=== PATIENT | female | born 1970 | race Caucasian/White ===

== ENCOUNTER 2016-04-09 12:54 | Emergency (ER) | payer BC ==
[2016-04-09 13:19] VITALS: BP 138/66
--- NOTE | 2016-04-09 13:55 | UC ---
UC General HPI - HPI Summary HPI Summary: patient has had elevated BP for the past few weeks. Sh is complaining of on and off facial flushing and increase in flatulence. - History of Current Complaint Chief Complaint: UCDizziness Stated Complaint: HIGH BLOOD PRESSURE, AND DIZZINESS Time Seen by Provider: 04/09/16 13:29 Hx Obtained From: Patient Onset/Duration: Sudden Onset, Lasting Weeks Timing: Constant Onset Severity: Mild Current Severity: Mild Pain Intensity: 0 - Allergy/Home Medications Allergies/Adverse Reactions: Allergies Allergy/AdvReac Type Severity Reaction Status Date / Time Sulfa Antibiotics Allergy Nausea And Verified 09/30/15 12:11 Vomiting PMH/Surg Hx/FS Hx/Imm Hx Previously Healthy: Yes Endocrine History Of: Reports: Diabetes - Borderline, Thyroid Disease - hashimotos Cardiovascular History Of: Denies: Cardiac Disorders, Hypertension Respiratory History Of: Reports: Asthma - mild - seasonal Denies: COPD GI/ History Of: Denies: Ulcer Cancer History Of: Denies: Breast Cancer - Surgical History Surgical History: Yes Surgery Procedure, Year, and Place: tonsillectomy at age 9. ivf - Family History Known Family History: Positive: Hypertension - Social History Alcohol Use: Rare Substance Use Type: None Smoking Status (MU): Never Smoked Tobacco Review of Systems Constitutional: Fatigue Skin: Other - facial flushing Eyes: Negative ENT: Negative Respiratory: Negative Cardiovascular: Negative Gastrointestinal: Other - flatulence Genitourinary: Negative Motor: Negative Neurovascular: Negative Musculoskeletal: Negative Neurological: Negative Psychological: Other - stress All Other Systems Reviewed And Are Negative: Yes Physical Exam Triage Information Reviewed: Yes Appearance: Well-Appearing, No Pain Distress, Well-Nourished, Other: - seems anxious, admits to lots of stress Vital Signs: Initial Vital Signs Temp 99 F 04/09/16 13:11 Pulse 91 04/09/16 13:11 Resp 16 04/09/16 13:11 BP 138/66 04/09/16 13:11 Pulse Ox 99 04/09/16 13:11 Vital Signs Reviewed: Yes Eye Exam: Normal Eyes: Positive: Conjunctiva Clear ENT Exam: Normal ENT: Positive: Hearing grossly normal, Pharynx normal, Nasal congestion, Nasal drainage, TMs normal Neck exam: Normal Neck: Positive: Supple, Nontender, No Lymphadenopathy, Other: - no thyroidmegaly noted Respiratory Exam: Normal Respiratory: Positive: Chest non-tender, Lungs clear, Normal breath sounds Cardiovascular Exam: Normal Cardiovascular: Positive: RRR, No Murmur, Pulses Normal Abdominal Exam: Normal Abdomen Description: Positive: Nontender, No Organomegaly, Soft Bowel Sounds: Positive: Present Musculoskeletal Exam: Normal Musculoskeletal: Positive: Strength Intact, ROM Intact, No Edema Neurological Exam: Normal Neurological: Positive: Alert, Muscle Tone Normal Psychological Exam: Normal Skin: Positive: Other - facial flushing and telangiectases Course/Dx - Course Course Of Treatment: hx obtained, exam performed, medications reviewed. lots of education of BP management and stress managment. no medications prescribed. - Differential Dx - Multi-Symptom Provider Diagnoses: high BP. rosacea Discharge - Discharge Plan Condition: Stable Disposition: HOME Patient Education Materials: How to Take a Blood Pressure (ED), Rosacea (ED), Hypertension (ED) Referrals: Kaye Renteria MD [Primary Care Provider] - Additional Instructions: Your BP today was 138/66. I would recommend that you take your BP daily for the next 2 weeks. Report back to your primary physican for evaluation. things that will help reduce your BP: 1. mild daily exercise 2. increase your fluid intake 3. Lower your stress level 4. massage therapy 5. Raw garlic daily has been shown to reduce BP, do it with your spouse so you dont notice!!) The flushing on your face I believe is Rosacea, see the enclosed hand out.
== END 2016-04-09 13:57 | disposition home or self-care (01) ==
LOC: UCEAST 12:54
DX: R03.0 Elevated blood-pressure reading, without diagnosis of hypertension (principal); L71.9 Rosacea, unspecified; Z88.2 Allergy status to sulfonamides
CPT/HCPCS: 99212; G0463

== ENCOUNTER 2016-08-29 09:01 | Emergency (ER) | payer BC ==
[2016-08-29 09:13] VITALS: BP 135/84
--- NOTE | 2016-08-29 10:36 | RAD ---
HISTORY: Right knee pain, remote trauma COMPARISONS: None VIEWS: 4, Frontal, lateral, axial, and oblique views of the right knee FINDINGS: BONE DENSITY: Normal. BONES: There is minimal fragmentation along the lateral aspect of the patella JOINTS: There is no arthropathy. ALIGNMENT: There is no dislocation. SOFT TISSUES: Unremarkable. OTHER FINDINGS: None. IMPRESSION: THERE IS MINIMAL FRAGMENTATION OF THE LATERAL ASPECT OF THE PATELLA WHICH MAY REFLECT POSTTRAUMATIC CHANGES. OTHERWISE, NO ACUTE OSSEOUS INJURY. RECOMMEND CORRELATION WITH SITE OF PAIN.
--- NOTE | 2016-08-29 11:30 | UC ---
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 SINCE THAT TIME HAS HAD FEELING OF PAIN AND INSTABITLTIY TO RIGHT KNEE. NO FEVER. NO REDNESS OR BRUISING. NO SWELLING. UNSTABLE FEELING WITH WEIGHT BEARING, BUT ABLE TO BEAR WEIGHT. 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 Hx Last Menstrual Period: 08/22/16 Onset/Duration: Gradual Onset, Lasting Weeks, Still Present Severity Initially: Moderate Severity Currently: Mild Pain Intensity: 3 Pain Scale Used: 0-10 Numeric Character: Dull, Aching, Stiffness Aggravating Factor(s): Movement, Weight Bearing Alleviating Factor(s): Rest, Position Associated Signs And Symptoms: Negative: Swelling, Redness Able to Bear Weight: Yes - Risk Factors Septic Arthritis Risk Factor: Negative Gout Risk Factor: Negative - Allergies/Home Medications Allergies/Adverse Reactions: Allergies Allergy/AdvReac Type Severity Reaction Status Date / Time Sulfa Antibiotics Allergy Nausea And Verified 08/29/16 09:04 Vomiting Home Medications: Home Medications Hydroxychloroquine TAB* [Plaquenil TAB*] 2 tab PO BEDTIME 08/29/16 [History Confirmed 08/29/16] PMH/Surg Hx/FS Hx/Imm Hx Previously Healthy: Yes - Surgical History Surgical History: Yes Surgery Procedure, Year, and Place: tonsillectomy AND ADENOIDS at age 9. ivf - Family History Known Family History: Positive: Hypertension - Social History Occupation: Employed Full-time Lives: With Family Alcohol Use: Rare Substance Use Type: None Smoking Status (MU): Never Smoked Tobacco Review of Systems Constitutional: Negative Skin: Negative Eyes: Negative ENT: Negative Respiratory: Negative Cardiovascular: Negative Gastrointestinal: Negative Genitourinary: Negative Motor: Negative Neurovascular: Negative Musculoskeletal: Arthralgia, Myalgia Neurological: Negative Psychological: Negative All Other Systems Reviewed And Are Negative: Yes Physical Exam Triage Information Reviewed: Yes Appearance: Well-Appearing, No Pain Distress, Well-Nourished Vital Signs: Initial Vital Signs Temp 98.5 F 08/29/16 09:05 Pulse 95 08/29/16 09:05 Resp 16 08/29/16 09:05 BP 135/84 08/29/16 09:05 Pulse Ox 99 08/29/16 09:05 Vital Signs Reviewed: Yes Eye Exam: Normal ENT Exam: Normal Dental Exam: Normal Neck exam: Normal Neck: Positive: Supple, Nontender, No Lymphadenopathy Respiratory Exam: Normal Respiratory: Positive: Chest non-tender, Lungs clear, Normal breath sounds, No respiratory distress, No accessory muscle use Cardiovascular Exam: Normal Cardiovascular: Positive: RRR, No Murmur, Pulses Normal Abdominal Exam: Normal Musculoskeletal: Positive: Strength Intact, ROM Intact, No Edema, Other: - TENDERNESS TO LATTERAL PATELLA Neurological Exam: Normal Psychological Exam: Normal Skin Exam: Normal Knee Pain Course/Dx - Differential Dx/Diagnosis Differential Diagnosis/HQI/PQRI: Internal Derangement Of Knee, Sprain, Strain Provider Diagnoses: MINIMAL FRAGMENTATION OF RIGHT LATERAL PATELLA; Discharge - Discharge Plan Condition: Stable Disposition: HOME Patient Education Materials: Knee Sprain (ED), Knee Pain (ED) Referrals: Kaye Renteria MD [Primary Care Provider] - Jass Hidalgo MD [Medical Doctor] -
== END 2016-08-29 11:02 | disposition home or self-care (01) ==
LOC: UCEAST 09:01
DX: S82.001A Unspecified fracture of right patella, initial encounter for closed fracture (principal); Z88.2 Allergy status to sulfonamides; W10.9XXA Fall (on) (from) unspecified stairs and steps, initial encounter; Y92.9 Unspecified place or not applicable
CPT/HCPCS: 99212; G0463

== ENCOUNTER 2017-01-30 08:13 | Emergency (ER) | payer BC ==
--- NOTE | 2017-01-30 08:52 | UC ---
Respiratory Complaint HPI - HPI Summary HPI Summary: 7 days of worsening sinus congestion and thick nasal drainage - History of Current Complaint Chief Complaint: UCRespiratory Stated Complaint: SINUS ISSUE Time Seen by Provider: 01/30/17 08:45 Hx Obtained From: Patient Hx Last Menstrual Period: 01/15/17 ?: No Onset/Duration: Sudden Onset, Lasting Days - 7, Still Present Timing: Constant Severity Initially: Moderate Severity Currently: Moderate Pain Intensity: 8 Pain Scale Used: 0-10 Numeric Character: Cough: Nonproductive Aggravating Factors: Nothing Alleviating Factors: Nothing Associated Signs And Symptoms: Positive: Fever - Allergies/Home Medications Allergies/Adverse Reactions: Allergies Allergy/AdvReac Type Severity Reaction Status Date / Time Sulfa Antibiotics Allergy Nausea And Verified 01/30/17 08:14 Vomiting Home Medications: Home Medications Meloxicam 7.5 mg PO DAILY 01/30/17 [History Confirmed 01/30/17] PMH/Surg Hx/FS Hx/Imm Hx Endocrine History: Thyroid Disease - Surgical History Surgical History: Yes Surgery Procedure, Year, and Place: tonsillectomy AND ADENOIDS at age 9. ivf - Family History Known Family History: Positive: Hypertension - Social History Occupation: Employed Full-time Lives: With Family Alcohol Use: Rare Substance Use Type: None Smoking Status (MU): Never Smoked Tobacco Review of Systems Constitutional: Fever Skin: Negative Eyes: Negative ENT: Sore Throat, Nasal Discharge, Sinus Congestion, Sinus Pain/Tenderness Respiratory: Negative Cardiovascular: Negative Gastrointestinal: Negative Genitourinary: Negative Motor: Negative Neurovascular: Negative Musculoskeletal: Negative Neurological: Negative Psychological: Negative Is Patient Immunocompromised?: No All Other Systems Reviewed And Are Negative: Yes Physical Exam Triage Information Reviewed: Yes Appearance: Well-Appearing, No Pain Distress, Well-Nourished Vital Signs: Initial Vital Signs Temp 98 F 01/30/17 08:18 Pulse 84 01/30/17 08:18 Resp 16 01/30/17 08:18 Pulse Ox 99 01/30/17 08:18 Vital Signs Reviewed: Yes Eye Exam: Normal Eyes: Positive: Conjunctiva Clear ENT Exam: Normal ENT: Positive: Normal ENT inspection, Hearing grossly normal, Pharynx normal, Nasal congestion, TMs normal, Sinus tenderness, Uvula midline. Negative: Nasal drainage, Trismus, Muffled voice, Hoarse voice Dental Exam: Normal Neck exam: Normal Neck: Positive: Supple, Nontender, No Lymphadenopathy Respiratory Exam: Normal Respiratory: Positive: Chest non-tender, Lungs clear, Normal breath sounds, No respiratory distress, No accessory muscle use Cardiovascular Exam: Normal Cardiovascular: Positive: RRR, No Murmur, Pulses Normal, Brisk Capillary Refill Musculoskeletal Exam: Normal Musculoskeletal: Positive: Strength Intact, ROM Intact, No Edema Neurological Exam: Normal Neurological: Positive: Alert, Muscle Tone Normal Psychological Exam: Normal Skin Exam: Normal UC Diagnostic Evaluation - Laboratory O2 Sat by Pulse Oximetry: 99 Respiratory Course/Dx - Course Course Of Treatment: Flonase, Augmentinn increase fluids follow with pcp - Differential Dx/Diagnosis Provider Diagnoses: Acute Rhininosinusitis Discharge - Discharge Plan Condition: Stable Disposition: HOME Prescriptions: Amoxicillin/Clavulanate TAB* [Augmentin TAB 875*] 875 mg PO BID #20 tab Fluticasone NASAL SPRAY 50MCG* [Flonase NASAL SPRAY 50MCG*] 2 spray BOTH NARES DAILY #1 btl Patient Education Materials: Sinusitis (ED), How to Use Nasal [place] (ED) Forms: *Work Release Referrals: Kaye Renteria MD [Primary Care Provider] - If Needed
[2017-01-30 09:07] VITALS: BP 126/79
== END 2017-01-30 08:59 | disposition home or self-care (01) ==
LOC: UCEAST 08:13
DX: J01.90 Acute sinusitis, unspecified (principal); R50.9 Fever, unspecified; E07.9 Disorder of thyroid, unspecified; Z88.2 Allergy status to sulfonamides
CPT/HCPCS: 99212; G0463

== ENCOUNTER 2017-03-31 15:50 | Emergency (ER) | payer BC ==
--- NOTE | 2017-03-31 17:03 | UC ---
Respiratory Complaint HPI - HPI Summary HPI Summary: Patient presents with a past medical history of hypothyroidism, sjogrens, and fibromyalgia. She presents today with complaints of fever, chills, cough x 4 days. She states there has been one case of influenza at her work place. She also states that she had a sinus infection and feel like those symptoms are coming back. She reports post nasal drip, and a tickle in the back of her throat. She states she is not sleeping due to persistent coughing. - History of Current Complaint Stated Complaint: COUGH,ACHES Time Seen by Provider: 03/31/17 16:42 Hx Obtained From: Patient Hx Last Menstrual Period: 01/15/17 Onset/Duration: Gradual Onset, Lasting Days Timing: Constant Severity Initially: Mild Severity Currently: Moderate Character: Cough: Nonproductive Aggravating Factors: Recumbent Position Alleviating Factors: Upright Position Associated Signs And Symptoms: Positive: Fever, Wheezing, URI, Nasal Congestion - Risk Factors Pulmonary Embolism Risk Factors: Negative Cardiac Risk Factors: Negative Pseudomonas Risk Factors: Negative Tuberculosis Risk Factors: Negative - Allergies/Home Medications Allergies/Adverse Reactions: Allergies Allergy/AdvReac Type Severity Reaction Status Date / Time Sulfa Antibiotics Allergy Nausea And Verified 03/31/17 17:12 Vomiting Home Medications: Home Medications Cholecalciferol [Vitamin D] 1,000 units PO DAILY 03/31/17 [History Confirmed ] Cyanocobalamin INJ * [Vitamin B12 INJ *] 1,000 mcg IM MONTHLY 03/31/17 [History Confirmed 03/31/17] Magnesium 500 mg PO DAILY 03/31/17 [History Confirmed 03/31/17] Omeprazole CAP* [Prilosec CAP* 20 MG] 20 mg PO DAILY 03/31/17 [History Confirmed 03/31/17] Selenium [Selenicaps-200] 200 mcg PO DAILY 03/31/17 [History Confirmed 03/31/17] PMH/Surg Hx/FS Hx/Imm Hx Previously Healthy: Yes Endocrine History: Hypothyroidism - Surgical History Surgical History: Yes Surgery Procedure, Year, and Place: tonsillectomy AND ADENOIDS at age 9. ivf - Family History Known Family History: Positive: Hypertension - Social History Occupation: Employed Full-time Lives: With Family Alcohol Use: Rare Substance Use Type: None Smoking Status (MU): Never Smoked Tobacco Review of Systems Constitutional: Fever, Fatigue Skin: Negative Eyes: Negative ENT: Negative Respiratory: Cough Cardiovascular: Negative Gastrointestinal: Negative Genitourinary: Negative Motor: Negative Neurovascular: Negative Musculoskeletal: Negative Neurological: Negative Psychological: Negative Is Patient Immunocompromised?: No All Other Systems Reviewed And Are Negative: Yes Physical Exam Triage Information Reviewed: Yes Appearance: Ill-Appearing Vital Signs Reviewed: Yes Eye Exam: Normal ENT Exam: Normal Neck exam: Normal Neck: Positive: 1 Respiratory Exam: Other - expiratory wheeze with coughing Cardiovascular Exam: Normal Abdominal Exam: Normal Skin Exam: Normal Respiratory Course/Dx - Course Course Of Treatment: Patient presents with 4 day onset fever, and cough. chest x -ray was obtained and read by the radiologist as negative. Influenza was A positive. Patient recieved Tylenol for fever of 102.4. She was RX tamiflu and taken out of work. If she does not improve by 04/03/17 she should be re-evlauted. She verbalized understanding of and in agreement with the discharge plan. - Differential Dx/Diagnosis Differential Diagnosis/HQI/PQRI: Influenza Provider Diagnoses: influenza Discharge - Discharge Plan Condition: Stable Disposition: HOME Prescriptions: Guaifenesin-Codeine [Codeine/Guaifenesin 100-10 mg/5Ml] 5 ml PO Q6HR PRN #180 ml MDD 4 PRN Reason: Cough Oseltamivir CAP* [Tamiflu CAP*] 75 mg PO BID #10 cap Patient Education Materials: Influenza (DC) Forms: *Work Release Referrals: Kaye Renteria MD [Primary Care Provider] -
[2017-03-31 17:06] VITALS: BP 117/60
[2017-03-31] MEDS ORDERED: Acetaminophen TAB* 325 MG PO ONE (17:06)
--- NOTE | 2017-03-31 17:38 | RAD ---
INDICATION: Cough. COMPARISON: Comparison is made with a prior chest x-ray study from February 10, 2013. TECHNIQUE: Dual-energy PA and lateral views of the chest were obtained. FINDINGS: The heart is within normal limits in size. Mediastinal and hilar contours appear within normal limits. The lungs are clear. No pleural effusion is present. IMPRESSION: NO EVIDENCE FOR ACTIVE CARDIOPULMONARY DISEASE.
== END 2017-03-31 17:51 | disposition home or self-care (01) ==
LOC: UCEAST 15:50
DX: J11.1 Influenza due to unidentified influenza virus with other respiratory manifestations (principal); E03.9 Hypothyroidism, unspecified
CPT/HCPCS: 71046; 87502; 99212; A9270-GY; G0463